=== PATIENT | male | born 1955 | race Caucasian/White ===

== ENCOUNTER → 2016-12-28 | Outpatient (CLI) | payer BC ==
[~2016-12-28] MED LIST: ACET50TAOT PO; ADVI200T PO; CAL-TAB2 PO; ESOM1CAP5 PO; LOSA50TA20 PO; MULTCAP PO; OMEP20CA3 PO; TEST1INJ3 IM; TEST200I14 IM; TRAM50TA2 PO; VITA-122 PO; XANA0.5T PO
[2016-12-28 11:44] LABS: MEAN CORPUSCULAR HEMOGLOBIN 29.1 pg (27.0-33.0); MEAN CORPUSCULAR HGB CONC 32.5 g/dl (32.0-36.5); MEAN CORPUSCULAR VOLUME 89.6 fl (80.0-96.0); RED CELL DISTRIBUTION WIDTH 14.3 % (11.5-14.5); WHITE BLOOD COUNT 6.8 10^3/uL (4.0-10.0)
[2016-12-28 13:43] LABS: ALBUMIN 3.7 GM/DL (3.2-5.2); ALBUMIN/GLOBULIN RATIO 1.09 (1.00-1.93); ALKALINE PHOSPHATASE 78 U/L (45-117); ALT/SGPT 44 U/L (12-78); ANION GAP 7 MEQ/L (8-16); AST/SGOT 24 U/L (15-37); BILIRUBIN,TOTAL 0.5 MG/DL (0.2-1.0); BLOOD UREA NITROGEN 26 MG/DL (7-18); CALCIUM LEVEL 8.7 MG/DL (8.8-10.2); CARBON DIOXIDE LEVEL 27 MEQ/L (21-32); CHLORIDE LEVEL 106 MEQ/L (98-107); CHOLESTEROL LEVEL 288 MG/DL (<200); CREATININE FOR GFR 1.03 MG/DL (0.70-1.30); GLOMERULAR FILTRATION RATE > 60.0 (>49); GLUCOSE, FASTING 93 MG/DL (80-110); POTASSIUM SERUM 4.3 MEQ/L (3.5-5.1); SODIUM LEVEL 140 MEQ/L (136-145); TOTAL PROTEIN 7.1 GM/DL (6.4-8.2); TRIGLYCERIDES LEVEL 154 MG/DL (<150)
== END ==
LOC: M LAB 10:58
PROVIDERS: ATTEND Family Medicine
DX: I10 Essential (primary) hypertension (principal)

== ENCOUNTER → 2018-01-31 | Outpatient (REF) | payer BC | LOC: M LAB REF 15:41 | DX: N39.0 Urinary tract infection, site not specified (principal) | CPT/HCPCS: 87186 ==

== ENCOUNTER → 2018-03-21 | Outpatient (CLI) | payer MEDICARE ==
[~2018-03-21] MED LIST changes: +ACET500T15 PO; -ACET50TAOT PO; -LOSA50TA20 PO; +LOSA50TA88 PO
[2018-03-21 13:04] LABS: HEMOGLOBIN 14.3 g/dl (13.5-17.5); MEAN CORPUSCULAR HEMOGLOBIN 29.9 pg (27.0-33.0); MEAN CORPUSCULAR HGB CONC 32.5 g/dl (32.0-36.5); MEAN CORPUSCULAR VOLUME 92.1 fl (80.0-96.0); PLATELET COUNT, AUTOMATED 249 10^3/uL (150-450); RED BLOOD COUNT 4.78 10^6/uL (4.30-6.10); WHITE BLOOD COUNT 8.4 10^3/uL (4.0-10.0)
[2018-03-21 13:13] LABS: ALBUMIN 3.3 GM/DL (3.2-5.2); ALT/SGPT 48 U/L (12-78); BILIRUBIN,TOTAL 0.4 MG/DL (0.2-1.0); BLOOD UREA NITROGEN 13 MG/DL (7-18); CALCIUM LEVEL 8.7 MG/DL (8.8-10.2); CARBON DIOXIDE LEVEL 25 MEQ/L (21-32); CHLORIDE LEVEL 106 MEQ/L (98-107); CHOLESTEROL LEVEL 270 MG/DL (<200); CHOLESTEROL RISK RATIO 4.426 (<5); CREATININE FOR GFR 1.01 MG/DL (0.70-1.30); GLOMERULAR FILTRATION RATE > 60.0 (>49); GLUCOSE, FASTING 90 MG/DL (70-100); HDL CHOLESTEROL 61 MG/DL (>40); LDL CHOLESTEROL 187 MG/DL (<100); NON-HDL-C 209 MG/DL; POTASSIUM SERUM 4.4 MEQ/L (3.5-5.1); PROSTATIC SPECIFIC AG MONITOR 0.29 NG/ML (< 4.00); SODIUM LEVEL 141 MEQ/L (136-145); TESTOSTERONE 82 NG/DL (241-827); TOTAL 25(OH) VITAMIN D 31.8 NG/ML (30.0-100.0); TOTAL PROTEIN 6.6 GM/DL (6.4-8.2); TRIGLYCERIDES LEVEL 110 MG/DL (<150)
[2018-03-21 13:54] LABS: HEMOGLOBIN A1c 5.2 %
[2018-03-22 10:35] LABS: HEPATITIS B SURFACE ANTIGEN NEGATIVE (NEGATIVE)
[2018-03-22 11:02] LABS: HEPATITIS C VIRUS ABY INDEX 0.1 INDEX (<0.8)
[2018-03-22 11:03] LABS: HEPATITIS B CORE ANTIBODY IGM NEGATIVE (NEGATIVE)
[2018-03-22 11:05] LABS: HEPATITIS A ANTIBODY IGM NEGATIVE (NEGATIVE)
== END ==
LOC: M ADAMS 08:14
PROVIDERS: ATTEND Surgery Vascular Surgery
DX: I10 Essential (primary) hypertension (principal); R53.83 Other fatigue; E03.9 Hypothyroidism, unspecified; Z79.899 Other long term (current) drug therapy; F43.23 Adjustment disorder with mixed anxiety and depressed mood

== ENCOUNTER → 2018-04-17 | Outpatient (CLI) | payer MEDICARE ==
--- NOTE | 2018-04-17 13:32 | REP ---
Chest two views HISTORY: Cough Comparison: 06/03/2015 The lungs are clear. The heart is normal in size. The pulmonary vasculature is normal in appearance. Degenerative change is present in the thoracic spine. IMPRESSION: No acute disease. Electronically Signed by Sudhir Chavarria MD 04/17/2018 01:23 P
--- NOTE | 2018-04-17 13:49 | REP ---
LUMBAR SPINE, FIVE VIEWS: HISTORY: Back pain. There is no acute fracture or subluxation. The intervertebral discs are decreased in height consistent with disc degeneration. Osteophytes are present throughout the lumbar spine. There is narrowing of the L4-5 and L5-S1 facet joints. IMPRESSION: Degenerative change as described above. Electronically Signed by Sudhir Chavarria MD 04/17/2018 01:57 P
== END ==
LOC: M ADAMS 12:53
PROVIDERS: ATTEND Family Medicine
DX: M51.36 Other intervertebral disc degeneration, lumbar region (principal); M51.37 Other intervertebral disc degeneration, lumbosacral region; M25.78 Osteophyte, vertebrae; R05 Cough; M54.5 Low back pain

== ENCOUNTER 2018-04-23 14:36 | Emergency (ER) | payer MEDICARE ==
[~2018-04-23] VITALS: Ht 175.3 cm; Wt 79.5 kg
[2018-04-23] MEDS ORDERED: NS 1,000 ML IV SCH (14:58)
[2018-04-23] MEDS ORDERED: ONDANSETRON 4MG/2ML VIAL (J2405) IV ONE (15:00)
[2018-04-23] MEDS ORDERED: ASPIRIN 81 MG CHEW TABLET PO ONE (15:00)
[2018-04-23] MEDS ORDERED: NITROGLYCERIN 0.4 MG SUBL TABLET SL PRN (15:00)
[2018-04-23 15:08] VITALS: BP 178/97
[2018-04-23 15:23] LABS: BASO # 0.1 10^3/uL (0.0-0.2); BASO % 0.6 % (0.0-1.0); EOS # 0.2 10^3/uL (0.0-0.50); HEMATOCRIT 51.6 % (42.0-52.0); HEMOGLOBIN 16.8 g/dl (13.5-17.5); LYMPH # 1.6 10^3/uL (1.5-4.5); LYMPH % 18.9 % (24.0-44.0); MEAN CORPUSCULAR HEMOGLOBIN 30.9 pg (27.0-33.0); MEAN CORPUSCULAR HGB CONC 32.6 g/dl (32.0-36.5); MEAN CORPUSCULAR VOLUME 94.9 fl (80.0-96.0); MONO # 0.7 10^3/uL (0.0-0.8); MONO % 8.4 % (0.0-5.0); NEUTROPHILS # 5.9 10^3/uL (1.8-7.7); NEUTROPHILS % 69.6 % (36.0-66.0); PLATELET COUNT, AUTOMATED 257 10^3/uL (150-450); RED BLOOD COUNT 5.44 10^6/uL (4.30-6.10); WHITE BLOOD COUNT 8.4 10^3/uL (4.0-10.0)
[2018-04-23 15:44] LABS: INR 0.95; PROTHROMBIN TIME 12.8 SECONDS (12.1-14.4)
[2018-04-23 15:45] LABS: PARTIAL THROMBOPLASTIN TIME 28.3 SECONDS (25.4-37.6)
[2018-04-23 15:58] LABS: ALBUMIN 3.5 GM/DL (3.2-5.2); ALT/SGPT 27 U/L (12-78); BILIRUBIN,DIRECT 0.1 MG/DL (0.0-0.2); BILIRUBIN,TOTAL 0.3 MG/DL (0.2-1.0); BLOOD UREA NITROGEN 11 MG/DL (7-18); CALCIUM LEVEL 8.1 MG/DL (8.8-10.2); CARBON DIOXIDE LEVEL 26 MEQ/L (21-32); CHLORIDE LEVEL 109 MEQ/L (98-107); CPK CREATINE PHOSPHOKINASE 137 U/L (39-308); CREATININE FOR GFR 0.91 MG/DL (0.70-1.30); FREE T4 0.88 NG/DL (0.76-1.46); GLOMERULAR FILTRATION RATE > 60.0 (>49); GLUCOSE, FASTING 115 MG/DL (70-100); LIPASE 164 U/L (73-393); MB/CK RELATIVE INDEX 1.39 (< OR =4); NT-PRO BNP 102 PG/ML (<125); SODIUM LEVEL 141 MEQ/L (136-145); THYROID STIMULATING HORMONE 0.827 uIU/ML (0.358-3.740); TOTAL PROTEIN 6.5 GM/DL (6.4-8.2); TROPONIN I < 0.02 NG/ML (< 0.10)
[2018-04-23] MEDS ORDERED: ISOVUE-370 76% 100ML VIAL (Q9967) As Ordered ONE (16:24)
--- NOTE | 2018-04-23 19:54 | ECGEPIP ---
Stationary ECG Study [facility] - ED Test Date: 2018-04-23 Pat Name: HEIKE REGAN Department: Room: - Gender: M Chief Technologist: RIVKA : 1955 Requested By: Erika Santoyo Order Number: [id number] Reading MD: Erika Santoyo Measurements Intervals [place] Rate: 94 P: 65 TX: 163 QRS: -42 QRSD: 92 T: 39 QT: 324 QTc: 406 Interpretive Statements SINUS RHYTHM MARKED LEFT AXIS DEVIATION SUBTLE ST T WAVE DEPRESSION INFEROLATERAL LEADS - NONSPECIFIC VS ISCHEMIA CLINICAL CORRELATION ADVISED CW 06/03/15 RATE INCREASED INFEROLATERAL CHANGES NEW - NONSPECIFIC VS ISCHEMIA Electronically Signed On 04-23-2018 19:53:57 EST by Erika Santoyo
[2018-04-23 20:00] LABS: CPK CREATINE PHOSPHOKINASE 120 U/L (39-308); MB/CK RELATIVE INDEX 1.33 (< OR =4); TROPONIN I < 0.02 NG/ML (< 0.10)
[2018-04-23] MEDS ORDERED: ASPI81TA85 PO (20:10)
[2018-04-23 20:13] VITALS: BP 176/98
--- NOTE | 2018-04-24 09:02 | REP ---
CHEST: Single view. There is no evidence of acute infiltrate. No pleural effusion is seen. The heart is normal in size. The mediastinal silhouette is unremarkable. The visualized osseous structures are intact. IMPRESSION: No acute pulmonary disease. Electronically Signed by Lucio Fletcher MD 04/24/2018 10:36 P
--- NOTE | 2018-04-24 10:36 | REP ---
CT ANGIOGRAM OF THE CHEST: TECHNIQUE: Axial contrast enhanced images from the thoracic inlet to the upper abdomen using 100 mL Isovue 370 intravenous contrast material with multiplanar reformations. There is no CT evidence of pulmonary embolism or aortic dissection. Heart is not enlarged. There is no adenopathy. There is no pleural or pericardial effusion. There is a tiny calcified granuloma in the left upper lobe. No definite infiltrate is seen bilaterally. Visualized upper abdominal structures appear unremarkable. IMPRESSION: No CT evidence of pulmonary embolism or aortic dissection. Electronically Signed by Lucio Fletcher MD 04/24/2018 10:49 P
--- NOTE | 2018-04-25 18:36 | ECGEPIP ---
Stationary ECG Study [facility] - ED Test Date: 2018-04-23 Pat Name: HEIKE REGAN Department: Room: - Gender: M Cabinet Builder: OR : 1955 Requested By: Erika Santoyo Order Number: [id number] Reading MD: Cora Campbell Measurements Intervals [place] Rate: 83 P: 46 AR: 180 QRS: -31 QRSD: 92 T: -13 QT: 347 QTc: 408 Interpretive Statements SINUS RHYTHM WITH SINUS ARRHYTHMIA MARKED LEFT AXIS DEVIATION NSTTW ABNORMALITY DECREASED RATE 04/23/18 14:46 Electronically Signed On 04-25-2018 18:36:08 EST by Cora Campbell
== END 2018-04-23 20:26 | disposition home or self-care (01) ==
LOC: M ED 14:36
DX: R07.9 Chest pain, unspecified (principal); R94.31 Abnormal electrocardiogram [ECG] [EKG]; I10 Essential (primary) hypertension; E78.5 Hyperlipidemia, unspecified; F17.200 Nicotine dependence, unspecified, uncomplicated
CPT/HCPCS: 71045; 71275; 80048; 80076; 82550; 82553; 83690; 83880; 84439; 84443; 84484; 85025; 85610; 85730; 93005; 93041; 94760; 96374; 99285; J2405; Q9967

== ENCOUNTER → 2018-08-14 | Outpatient (REF) | payer MEDICARE ==
[~2018-08-14] MED LIST changes: +ASPI81TA85 PO
[2018-08-14 20:05] LABS: BASO % 0.5 % (0.0-1.0); EOS # 0.2 10^3/uL (0.0-0.50); EOS % 2.7 % (0.0-3.0); HEMATOCRIT 51.8 % (42.0-52.0); HEMOGLOBIN 16.9 g/dl (13.5-17.5); LYMPH # 0.9 10^3/uL (1.5-4.5); LYMPH % 10.8 % (24.0-44.0); MEAN CORPUSCULAR HGB CONC 32.6 g/dl (32.0-36.5); MONO # 0.9 10^3/uL (0.0-0.8); MONO % 10.7 % (0.0-5.0); NEUTROPHILS # 6.3 10^3/uL (1.8-7.7); NEUTROPHILS % 75.1 % (36.0-66.0); PLATELET COUNT, AUTOMATED 236 10^3/uL (150-450); RED BLOOD COUNT 5.45 10^6/uL (4.30-6.10); WHITE BLOOD COUNT 8.4 10^3/uL (4.0-10.0)
[2018-08-14 20:36] LABS: ALBUMIN 3.3 GM/DL (3.2-5.2); ALT/SGPT 380 U/L (12-78); BLOOD UREA NITROGEN 10 MG/DL (7-18); CALCIUM LEVEL 8.7 MG/DL (8.8-10.2); CARBON DIOXIDE LEVEL 29 MEQ/L (21-32); CHLORIDE LEVEL 104 MEQ/L (98-107); CREATININE FOR GFR 1.02 MG/DL (0.70-1.30); GLOMERULAR FILTRATION RATE > 60.0 (>49); GLUCOSE, FASTING 102 MG/DL (70-100); LIPASE 2585 U/L (73-393); POTASSIUM SERUM 4.1 MEQ/L (3.5-5.1); SODIUM LEVEL 141 MEQ/L (136-145); TOTAL PROTEIN 6.9 GM/DL (6.4-8.2)
== END ==
LOC: M LABDRWAD 19:29
PROVIDERS: ATTEND Physician Assistant
DX: R10.11 Right upper quadrant pain (principal)

== ENCOUNTER → 2018-08-17 | Outpatient (CLI) | payer MEDICARE ==
--- NOTE | 2018-08-17 08:53 | REP ---
RIGHT UPPER QUADRANT ULTRASOUND: Real-time sonographic evaluation of the right upper quadrant performed. Gallbladder is contracted and contains multiple stones as well as sludge. There is no significant gallbladder wall thickening. There is no intrahepatic or extrahepatic biliary dilatation, common bile duct measuring 5 mm. No free fluid is seen. There is diffuse increased echotexture of the liver suggesting diffuse fibrofatty infiltration. No gross liver or pancreas mass is seen, pancreatic tail is not well seen due to overlying bowel gas. Right kidney demonstrates no hydronephrosis with normal size 11.9 cm in length. IMPRESSION: Somewhat contracted gallbladder containing sludge and stones. No significant gallbladder wall thickening. No free fluid or biliary dilatation. Diffuse fibrofatty infiltration of the liver. Electronically Signed by Lucio Fletcher MD 08/21/2018 01:40 P
== END ==
LOC: M RAD 07:18
PROVIDERS: ATTEND Physician Assistant
DX: K80.20 Calculus of gallbladder without cholecystitis without obstruction (principal); K76.0 Fatty (change of) liver, not elsewhere classified

== ENCOUNTER 2018-10-15 12:28 | Emergency (ER) | payer MEDICARE ==
[~2018-10-15] VITALS: Ht 175.3 cm; Wt 75.0 kg
[~2018-10-15 12:28] MED LIST changes: -OMEP20CA3 PO; +OMEP20CA4 PO
[2018-10-15] MEDS ORDERED: ADVI100T PO ×2 (12:36)
[2018-10-15] MEDS ORDERED: ACET1TAB16 (12:36)
[2018-10-15] MEDS ORDERED: MELO7.5T35 (12:36)
[2018-10-15] MEDS ORDERED: KETOROLAC 60 MG/2 ML VIAL (J1885) IM ONE (13:15)
[2018-10-15] MEDS ORDERED: CYCLOBENZAPRINE 10 MG TAB PO ONE (13:15)
--- NOTE | 2018-10-15 13:59 | REP ---
Clinical: Left hip pain. Technique: AP, lateral, bilateral oblique and coned-down views of the lumbosacral spine. Findings: Moderate/early advanced multilevel degenerative changes are appreciated. Alignment is maintained and without spondylolisthesis. No obvious acute fracture / compression injury or subluxation. Impression: Moderate/early advanced multilevel degenerative spondylosis. Electronically Signed by Misbah Moffett MD 10/15/2018 01:50 P
--- NOTE | 2018-10-15 14:00 | REP ---
Clinical: Left hip pain. Technique: AP view of the pelvis with neutral and frog lateral views of the left hip. Findings: Age-related arthritic degenerative changes to the pelvis and hips noted. No acute fracture or dislocation. Impression: Age-related arthritic degenerative changes. Electronically Signed by Misbah Moffett MD 10/15/2018 01:51 P
[2018-10-15] MEDS ORDERED: KETO10TAB PO (14:27)
[2018-10-15] MEDS ORDERED: CYCL10TA PO (14:27)
[2018-10-15] MEDS ORDERED: METH4PACK PO (14:35)
[2018-10-15 14:45] VITALS: BP 160/81
== END 2018-10-15 14:47 | disposition home or self-care (01) ==
LOC: M ED 12:28
DX: M51.37 Other intervertebral disc degeneration, lumbosacral region (principal); M16.12 Unilateral primary osteoarthritis, left hip; M54.32 Sciatica, left side; I10 Essential (primary) hypertension; E78.5 Hyperlipidemia, unspecified; Z79.899 Other long term (current) drug therapy; Z79.82 Long term (current) use of aspirin
CPT/HCPCS: 72110; 73502; 96372; 99283; J1885

== ENCOUNTER → 2018-12-25 | Outpatient (CLI) | payer MEDICARE ==
[~2018-12-25] MED LIST changes: +ACET1TAB16; +ADVI100T PO; +CYCL10TA PO; +E-Z-GAS II EFFERVESCENT PACKET (SODIUM BICARB./CITRIC ACID/SIMETHICONE) As Ordered ONE; +E-Z-HD 98% w/w 340GM SUSP BTL As Ordered ONE; +E-Z-PAQUE 96% w/w SUSP 176GM BTL As Ordered ONE; +KETO10TAB PO; +MELO7.5T35; +METH4PACK PO
--- NOTE | 2018-12-25 18:51 | REP ---
Examination Requested: Upper G.I. Series With KUB Reason For Exam: Epigastric pain Upper GI Air Contrast The procedure was performed by MARY ELLEN Morris, under the direct supervision of Dr. Tamez. The images were reviewed with Dr. Tamez. The solaris administrator film shows no organomegaly or pathological masses. The intestinal gas pattern appears normal. There is degenerative disc disease of the cervical spine with spurs most notably at the C4/5, C5/6 and C6/7 disc spaces. Liquid barium and gas producing crystals were given in the erect position as well as liquid barium in the prone oblique position in order to perform a double contrast upper GI examination. The oral and pharyngeal stages of deglutition were unremarkable. However penetration without aspiration was visualized. Esophageal transport is efficient and there is no esophagitis, stricture, or mucosal ring noted. There is no hiatal hernia. Gastroesophageal reflux was not demonstrated throughout the course of the exam. The stomach alejandre are normally outlined. The rugal folds are smooth and regular. There is no gastritis, neoplasm, ulcer disease noted. The duodenal alejandre are normally outlined. The mucosal folds are smooth and regular. There is no duodenitis, peptic ulcer disease, or neoplasm noted. The visualized portion of the proximal small bowel appears normal in course and caliber. Impression: 1. Penetration without aspiration, otherwise unremarkable upper GI. 2. Degenerative disc disease of the cervical spine as described above. 0.9 minutes of fluoroscopy time was utilized for this procedure. Some fluoroscopic images are performed with last image hold technology. These images require no additional radiation. Reviewed by MARY ELLEN Herrera 12/25/2018 02:54 P Electronically Signed by Monroe Tamez MD 12/25/2018 06:41 P
== END ==
LOC: M RAD 09:06
PROVIDERS: ATTEND Family Medicine
DX: M50.321 Other cervical disc degeneration at C4-C5 level (principal); M50.322 Other cervical disc degeneration at C5-C6 level

== ENCOUNTER 2019-05-04 12:55 | Day surgery (SDC) | payer MEDICARE ==
[~2019-05-04] VITALS: Ht 175.3 cm; Wt 72.6 kg
[~2019-05-04 12:55] MED LIST changes: +ALPR0.5T3 PO; -E-Z-GAS II EFFERVESCENT PACKET (SODIUM BICARB./CITRIC ACID/SIMETHICONE) As Ordered ONE; -E-Z-HD 98% w/w 340GM SUSP BTL As Ordered ONE; -E-Z-PAQUE 96% w/w SUSP 176GM BTL As Ordered ONE; +NS 1,000 ML IV ONE; +OMEP-218 PO; +OMEP1CAP73 PO; -OMEP20CA4 PO; +SUCR1TA PO
[2019-05-04] MEDS ORDERED: LIDOCAINE 2% INJ 100 MG/5 ML SDV (FOR ANES.) As Ordered ONE (14:49)
[2019-05-04] MEDS ORDERED: propofoL 200 MG/20 ML VIAL As Ordered ONE (14:49)
--- NOTE | 2019-05-04 14:51 | ROOR ---
Patient Name: Rafi Wills Procedure Date: 05/04/2019 2:19 PM Date of : 1955 Age: 63 Room: [facility] Gender: Male Note Status: Finalized Procedure: Colonoscopy Indications: High risk colon cancer surveillance: Personal history of colonic polyps, Last colonoscopy: March 2015 Providers: Natan TOVAR MD Referring MD: RADHA BARRAZA MD Requesting Provider: Medicines: Monitored Anesthesia Care Complications: No immediate complications. Procedure: Pre-Anesthesia Assessment: - The heart rate, respiratory rate, oxygen saturations, blood pressure, adequacy of pulmonary ventilation, and response to care were monitored throughout the procedure. The Colonoscope was introduced through the anus and advanced to the terminal ileum, with identification of the appendiceal orifice and IC valve. The colonoscopy was performed without difficulty. The patient tolerated the procedure well. The quality of the bowel preparation was good. Findings: The perianal and digital rectal examinations were normal. Five sessile polyps were found in the hepatic flexure, ascending colon and cecum. The polyps were 5 to 10 mm in size. These polyps were removed with a cold snare. Resection and retrieval were complete. A 4 mm polyp was found in the sigmoid colon. The polyp was sessile. The polyp was removed with a cold snare. Resection and retrieval were complete. A 4 mm polyp was found in the rectum. The polyp was sessile. The polyp was removed with a cold snare. Resection and retrieval were complete. A 10 mm post polypectomy scar was found in the mid rectum. There was no evidence of the previous polyp. Multiple medium-mouthed diverticula were found in the sigmoid colon. Internal hemorrhoids were found during retroflexion. The hemorrhoids were moderate. Impression: - Five 5 to 10 mm polyps at the hepatic flexure, in the ascending colon and in the cecum, removed with a cold snare. Resected and retrieved. - One 4 mm polyp in the sigmoid colon, removed with a cold snare. Resected and retrieved. - One 4 mm polyp in the rectum, removed with a cold snare. Resected and retrieved. - Post-polypectomy (2015) scar in the mid rectum, free of any residual polyp tissue. - Diverticulosis in the sigmoid colon. - Internal hemorrhoids. Recommendation: - Use fiber, for example Citrucel, Fibercon, Konsyl or Metamucil. - Repeat colonoscopy in 3 years for surveillance. Natan Tovar MD Natan TOVAR MD 05/04/2019 2:51:30 PM Electronically signed by Natan TOVAR MD Number of Addenda: 0 Note Initiated On: 05/04/2019 2:19 PM Estimated Blood Loss: Estimated blood loss: none.
[2019-05-04 15:15] VITALS: BP 141/79
== END 2019-05-04 15:21 | disposition home or self-care (01) ==
LOC: M OPP 12:55
PROVIDERS: ATTEND Internal Medicine Gastroenterology
DX: Z12.11 Encounter for screening for malignant neoplasm of colon (principal); Z86.010 Personal history of colon polyps; K63.5 Polyp of colon; K62.1 Rectal polyp; K64.8 Other hemorrhoids; K57.30 Diverticulosis of large intestine without perforation or abscess without bleeding; F17.210 Nicotine dependence, cigarettes, uncomplicated

== ENCOUNTER → 2020-01-31 | Outpatient (REF) | payer MEDICARE ==
[~2020-01-31] MED LIST changes: -ASPI81TA85 PO; +ASPI81TA86 PO; +CYCL-707 PO; -CYCL10TA PO; -NS 1,000 ML IV ONE
== END ==
LOC: M LAB REF 11:28
PROVIDERS: ATTEND Specialist
DX: D10.1 Benign neoplasm of tongue (principal)

== ENCOUNTER → 2020-03-25 | Outpatient (CLI) | payer MEDICARE ==
--- NOTE | 2020-03-25 17:23 | REP ---
INDICATION: Assess stenosis COMPARISON: None TECHNIQUE: Carotid ultrasonography was performed bilaterally FINDINGS: Right: CCA systolic: 84.9 centimeters/second CCA diastolic: 16.7 centimeters/seconds ICA systolic: 73.9 centimeters/seconds diastolic: 26.0 centimeters/seconds ICA CCA ratio: 0.9 Left: CCA systolic: 75.1 centimeters/seconds CCA diastolic: 16.7 centimeters/second ICA systolic: 60.6 centimeters/second ICA diastolic: 22.5 centimeters/second ICA CCA ratio: 0.8 Vertebral artery: Right: Antegrade left: Antegrade IMPRESSION: According to the SRU criteria there is less than 50% stenosis in the internal carotid artery bilaterally. This is secondary to both calcified and noncalcified plaque formation. <Electronically signed by Mark Porter > 03/25/20 [id number]
== END ==
LOC: M RAD 16:08
PROVIDERS: ATTEND Family Medicine
DX: R09.89 Other specified symptoms and signs involving the circulatory and respiratory systems (principal)

== ENCOUNTER → 2020-07-14 | Outpatient (CLI) | payer MEDICARE ==
--- NOTE | 2020-07-14 07:31 | REPVR ---
PROCEDURE INFORMATION: Exam: CT Head Without Contrast Exam date and time: 07/14/2020 7:14 AM Age: 64 years old Clinical indication: Pain; Headache; Additional info: JASON, dizziness TECHNIQUE: Imaging protocol: Computed tomography of the head without contrast. Radiation optimization: All CT scans at this facility use at least one of these dose optimization techniques: automated exposure control; mA and/or kV adjustment per patient size (includes targeted exams where dose is matched to clinical indication); or iterative reconstruction. COMPARISON: No relevant prior studies available. FINDINGS: Brain: Normal. No hemorrhage. Unremarkable white matter. No mass effect. Cerebral ventricles: No ventriculomegaly. Bones/joints: Unremarkable. No acute fracture. Paranasal sinuses: Chronic mucosal disease involves some ethmoid air cells. The visualized paranasal sinuses and air cells are otherwise clear. Mastoid air cells: Visualized mastoid air cells are well aerated. Soft tissues: Unremarkable. IMPRESSION: 1. No CT evidence for acute intracranial abnormality. 2. Chronic ethmoid air cell disease. Electronically signed by: Rafi Zavaleta On 07/14/2020 07:31:17 AM
== END ==
LOC: M RAD 06:59
PROVIDERS: ATTEND Family Medicine
DX: R51.9 Headache, unspecified (principal); R42 Dizziness and giddiness; J32.2 Chronic ethmoidal sinusitis

== ENCOUNTER 2020-10-06 14:41 | Outpatient (RCR) | payer MEDICARE | END 2020-10-11 | LOC: M OUTALCOH 14:41 | PROVIDERS: ATTEND Psychiatry & Neurology Psychiatry | DX: F10.20 Alcohol dependence, uncomplicated (principal) | CPT/HCPCS: H0001; H0050 ==

== ENCOUNTER → 2020-12-05 | Outpatient (CLI) | payer MEDICARE ==
--- NOTE | 2020-12-05 14:28 | REP ---
INDICATION: HEAD INJURY. COMPARISON: July 14, 2020. TECHNIQUE: Helical scanning is acquired. 5 mm axial images were reformatted. Coronal MPR images were generated. FINDINGS: Bone window settings demonstrate an intact bony calvarium. There is no evidence of skull fracture or incidental bony calvarial lesion. There is mild mucosal thickening again seen in the ethmoid air cells unchanged. The visualized paranasal sinuses appear otherwise clear. No intraorbital abnormality is seen. On soft tissue window setting images; the lateral, third, and fourth ventricles are normal in size and position. Fletcher-white differentiation pattern is normal above and below the tentorium. There are is no evidence of intracranial hemorrhage. No mass, edema, infarction, or midline shift is seen. No extra-axial fluid collection is appreciated. IMPRESSION: Ethmoid sinus mucosal thickening is again noted. Otherwise negative head CT. No skull fracture or intracranial injury seen. <Electronically signed by [place] Tamez > 12/05/20 [id number]
== END ==
LOC: M RAD 13:28
PROVIDERS: ATTEND Family Medicine
DX: S09.90XA Unspecified injury of head, initial encounter (principal); X58.XXXA Exposure to other specified factors, initial encounter; Y92.9 Unspecified place or not applicable; Y99.9 Unspecified external cause status; Y93.9 Activity, unspecified; J32.2 Chronic ethmoidal sinusitis

== ENCOUNTER → 2021-02-17 | Outpatient (CLI) | payer MEDICARE ==
--- NOTE | 2021-02-17 11:15 | REP ---
INDICATION: FALL, R/O FX COMPARISON: 05/28/2014. TECHNIQUE: Five views right knee. FINDINGS: There is no evidence of acute fracture, dislocation, or intrinsic bone disease.There is a stable moderate spur at the superior pole of the patella. There is no radiographic evidence of a significant joint effusion. There are mild vascular calcifications posteriorly. IMPRESSION: No fracture or dislocation. Stable moderate spur superior pole patella. <Electronically signed by Lucio Fletcher > 02/17/21 [id number]
--- NOTE | 2021-02-17 11:16 | REP ---
INDICATION: FALL, R/O FX COMPARISON: Pelvis 10/15/2018, right knee 05/28/2014. TECHNIQUE: AP and lateral right femur. FINDINGS: There is no evidence of acute fracture, dislocation, or intrinsic bone disease.There are moderate degenerative changes at the hip joint, with moderate joint space narrowing, subchondral sclerosis and spurring. There is moderate spurring of the superior pole of the patella. IMPRESSION: Moderate degenerative changes right hip joint. Moderate spurring superior pole of patella. <Electronically signed by Lucio Fletcher > 02/17/21 [id number]
== END ==
LOC: M ADAMS 09:52
PROVIDERS: ATTEND Family Medicine
DX: M16.11 Unilateral primary osteoarthritis, right hip (principal); M76.891 Other specified enthesopathies of right lower limb, excluding foot; Z91.81 History of falling

== ENCOUNTER 2021-04-22 19:05 | Emergency (ER) | payer MEDICARE ==
[~2021-04-22] VITALS: Ht 172.7 cm; Wt 83.3 kg
[~2021-04-22 19:05] MED LIST changes: +LOSA50TA28 PO; -LOSA50TA88 PO; +OMEP-173 PO; -OMEP-218 PO
[2021-04-22] MEDS ORDERED: HYDR-3363 (19:17)
[2021-04-22 22:16] VITALS: BP 150/100
== END 2021-04-22 23:28 | disposition left against medical advice (07) ==
LOC: M ED 19:05
DX: Z53.21 Procedure and treatment not carried out due to patient leaving prior to being seen by health care provider (principal)

== ENCOUNTER → 2021-06-29 | Outpatient (CLI) | payer MEDICARE ==
[~2021-06-29] MED LIST changes: -ACET1TAB16; +ACET300T48; +HYDR-3363
== END ==
LOC: M RAD 08:58
PROVIDERS: ATTEND Family Medicine
DX: R10.11 Right upper quadrant pain (principal)

== ENCOUNTER → 2022-03-02 | Outpatient (CLI) | payer MEDICARE ==
[2022-03-02 11:09] LABS: HEMATOCRIT 48.7 % (42.0-52.0); HEMOGLOBIN 15.5 g/dl (13.5-17.5); MEAN CORPUSCULAR HEMOGLOBIN 30.1 pg (27.0-33.0); MEAN CORPUSCULAR HGB CONC 31.8 g/dl (32.0-36.5); MEAN CORPUSCULAR VOLUME 94.6 fl (80.0-96.0); PLATELET COUNT, AUTOMATED 224 10^3/uL (150-450); RED BLOOD COUNT 5.15 10^6/uL (4.30-6.10)
[2022-03-02 11:21] LABS: INR 0.91; PROTHROMBIN TIME 12.5 SECONDS (12.5-14.5)
[2022-03-02 11:34] LABS: ALBUMIN 3.4 G/DL (3.2-5.2); ALKALINE PHOSPHATASE 73 U/L (46-116); ALT/SGPT 29 U/L (7.0-40); AST/SGOT 32 U/L (<34); BILIRUBIN,TOTAL 0.6 MG/DL (0.3-1.2); BLOOD UREA NITROGEN 20 MG/DL (9-23); CARBON DIOXIDE LEVEL 26 MMOL/L (20-31); CHLORIDE LEVEL 106 MMOL/L (98-107); CHOLESTEROL LEVEL 288 MG/DL (<200); CHOLESTEROL RISK RATIO 6.22 (<5); CREATININE FOR GFR 0.92 MG/DL (0.70-1.30); GLOMERULAR FILTRATION RATE > 60.0 (>49); GLUCOSE, FASTING 88 MG/DL (74-106); HDL CHOLESTEROL 46.3 MG/DL (>40); LDL CHOLESTEROL 195.9 MG/DL (<100); NON-HDL-C 242 MG/DL; POTASSIUM SERUM 4.6 MMOL/L (3.5-5.1); SODIUM LEVEL 139 MMOL/L (136-145); TOTAL PROTEIN 6.6 G/DL (5.7-8.2); TRIGLYCERIDES LEVEL 229 MG/DL (<150)
[2022-03-02 11:36] LABS: THYROID STIMULATING HORMONE 2.548 uIU/ML (0.55-4.78)
== END ==
LOC: M RAD 10:06
PROVIDERS: ATTEND Family Medicine
DX: Z01.818 Encounter for other preprocedural examination (principal); I10 Essential (primary) hypertension; J44.9 Chronic obstructive pulmonary disease, unspecified
CPT/HCPCS: 36415; 71046; 80053; 80061; 84443; 85027; 85610; 93005; G0103

== ENCOUNTER → 2022-06-02 | Outpatient (CLI) | payer MEDICARE ==
[~2022-06-02] MED LIST changes: +E-Z-GAS II EFFERVESCENT PACKET (SODIUM BICARB./CITRIC ACID/SIMETHICONE) As Ordered ONE; +E-Z-HD 98% w/w 340GM SUSP BTL As Ordered ONE; +E-Z-PAQUE 96% w/w SUSP 176GM BTL As Ordered ONE
== END ==
LOC: M RAD 09:25
PROVIDERS: ATTEND Family Medicine
DX: K27.9 Peptic ulcer, site unspecified, unspecified as acute or chronic, without hemorrhage or perforation (principal); R10.13 Epigastric pain

== ENCOUNTER 2022-09-23 10:41 | Day surgery (SDC) | payer MEDICARE ==
[~2022-09-23] VITALS: Ht 172.7 cm; Wt 78.5 kg
[~2022-09-23 10:41] MED LIST changes: -E-Z-GAS II EFFERVESCENT PACKET (SODIUM BICARB./CITRIC ACID/SIMETHICONE) As Ordered ONE; -E-Z-HD 98% w/w 340GM SUSP BTL As Ordered ONE; -E-Z-PAQUE 96% w/w SUSP 176GM BTL As Ordered ONE; +LIDOCAINE 2% 100MG/5ML SDV (FOR ANES.) As Ordered ONE; +NAPR-885 PO; +NS 1,000 ML IV ONE; +propofoL 200 MG/20 ML VIAL As Ordered ONE
[2022-09-23] MEDS ORDERED: fentaNYL 100 MCG/2 ML INJECTION As Ordered ONE (12:59)
[2022-09-23] MEDS ORDERED: propofoL 200 MG/20 ML VIAL As Ordered ONE (13:29)
[2022-09-23 14:30] VITALS: BP 185/102; TEMP 98.2; O2SAT 99
== END 2022-09-23 15:15 | disposition home or self-care (01) ==
LOC: M OPP 10:41
PROVIDERS: ATTEND Internal Medicine Gastroenterology
DX: Z12.11 Encounter for screening for malignant neoplasm of colon (principal); Z86.010 Personal history of colon polyps; Z80.0 Family history of malignant neoplasm of digestive organs; D12.2 Benign neoplasm of ascending colon; D12.3 Benign neoplasm of transverse colon; K64.8 Other hemorrhoids; D49.0 Neoplasm of unspecified behavior of digestive system; K29.70 Gastritis, unspecified, without bleeding; K22.2 Esophageal obstruction; Z79.1 Long term (current) use of non-steroidal anti-inflammatories (NSAID); Z79.899 Other long term (current) drug therapy; F17.200 Nicotine dependence, unspecified, uncomplicated
CPT/HCPCS: 43239; 43249; 45380; 45381; 88305; J3010

== ENCOUNTER → 2022-11-16 | Outpatient (CLI) | payer MEDICARE ==
[~2022-11-16] MED LIST changes: -LIDOCAINE 2% 100MG/5ML SDV (FOR ANES.) As Ordered ONE; -NS 1,000 ML IV ONE; -propofoL 200 MG/20 ML VIAL As Ordered ONE
== END ==
LOC: M RAD 12:54
PROVIDERS: ATTEND Family Medicine
DX: J44.9 Chronic obstructive pulmonary disease, unspecified (principal)

== ENCOUNTER → 2022-11-24 | Outpatient (CLI) | payer MEDICARE | LOC: M RAD 07:56 | PROVIDERS: ATTEND Family Medicine | DX: R22.2 Localized swelling, mass and lump, trunk (principal) ==

== ENCOUNTER → 2023-01-25 | Day surgery (SDC) | payer MEDICARE ==
[~2023-01-25] VITALS: Ht 172.7 cm; Wt 77.6 kg
[~2023-01-25] MED LIST changes: +ELEVIEW SUBMUCOSAL INJ 10ML AMP As Ordered ONE; +GLYCOPYRROLATE INJ 0.2 MG/ML 2 ML VIAL As Ordered ONE; +LIDOCAINE 2% 100MG/5ML SDV (FOR ANES.) As Ordered ONE; +NS 1,000 ML IV ONE; +propofoL 500 MG/50 ML VIAL As Ordered ONE
[2023-01-25 08:48] VITALS: TEMP 98
[2023-01-25 09:03] VITALS: BP 112/63; O2SAT 98
== END | disposition home or self-care (01) ==
LOC: M OPP 07:09
PROVIDERS: ATTEND Internal Medicine Gastroenterology
DX: K57.30 Diverticulosis of large intestine without perforation or abscess without bleeding (principal); K63.5 Polyp of colon; D12.4 Benign neoplasm of descending colon; K64.8 Other hemorrhoids; F17.210 Nicotine dependence, cigarettes, uncomplicated; Z80.0 Family history of malignant neoplasm of digestive organs; Z80.1 Family history of malignant neoplasm of trachea, bronchus and lung; Z79.899 Other long term (current) drug therapy

== ENCOUNTER → 2023-08-17 | Outpatient (CLI) | payer MEDICARE ==
[~2023-08-17] MED LIST changes: -ELEVIEW SUBMUCOSAL INJ 10ML AMP As Ordered ONE; +ESOM1CAP20 PO; -ESOM1CAP5 PO; -GLYCOPYRROLATE INJ 0.2 MG/ML 2 ML VIAL As Ordered ONE; -LIDOCAINE 2% 100MG/5ML SDV (FOR ANES.) As Ordered ONE; -NS 1,000 ML IV ONE; -propofoL 500 MG/50 ML VIAL As Ordered ONE
== END ==
LOC: M PLAIMG 09:53
PROVIDERS: ATTEND Family Medicine
DX: R04.2 Hemoptysis (principal); I70.0 Atherosclerosis of aorta; I25.10 Atherosclerotic heart disease of native coronary artery without angina pectoris; K76.0 Fatty (change of) liver, not elsewhere classified

== ENCOUNTER → 2024-11-07 | Outpatient (REF) | payer MEDICARE | LOC: M SFHCLERA 13:35 | PROVIDERS: ATTEND Internal Medicine | DX: Z53.9 Procedure and treatment not carried out, unspecified reason (principal) ==

== ENCOUNTER → 2025-02-26 | Outpatient (REF) | payer MEDICARE ==
[~2025-02-26] MED LIST changes: -HYDR-3363; +HYDR-3363 PO
[2025-02-26 14:13] LABS: BASO # 0.1 10^3/uL (0.0-0.2); BASO % 0.6 % (0.0-1.0); EOS # 0.2 10^3/uL (0.0-0.5); EOS % 2.5 % (0.0-3.0); LYMPH # 2.8 10^3/uL (1.5-5.0); LYMPH % 29.6 % (24.0-44.0); MONO # 1.0 10^3/uL (0.0-0.8); MONO % 10.5 % (2.0-8.0); NEUTROPHILS # 5.4 10^3/uL (1.5-8.5); NEUTROPHILS % 56.5 % (36.0-66.0); PLATELET COUNT, AUTOMATED 246 10^3/uL (150-450)
[2025-02-26 14:18] LABS: APPEARANCE, URINE CLEAR (CLEAR); BACTERIA, URINE AUTO NEGATIVE (NEGATIVE); BILIRUBIN, URINE AUTO NEGATIVE (NEGATIVE); BLOOD, URINE BLOOD NEGATIVE (NEGATIVE); GLUCOSE, URINE (UA) AUTO NEGATIVE (NEGATIVE); KETONE, URINE AUTO NEGATIVE (NEGATIVE); LEUKOCYTE ESTERASE, URINE AUTO NEGATIVE (NEGATIVE); MUCUS, URINE SMALL (NEGATIVE); NITRITE, URINE AUTO NEGATIVE (NEGATIVE); PROTEIN, URINE AUTO NEGATIVE (NEGATIVE); RBC, URINE AUTO 1 /HPF (0-3); SPECIFIC GRAVITY URINE AUTO 1.019 (1.002-1.035); SQUAMOUS EPITHELIAL CELL UR AU 0 /HPF (0-6); UROBILINOGEN, URINE AUTO 0.2 mg/dL (0.0-2.0); WBC, URINE AUTO 1 /HPF (0-3)
[2025-02-26 14:19] LABS: PSA SCREENING 0.21 NG/ML (< 4.00)
[2025-02-26 14:20] LABS: ALT/SGPT 25 U/L (7.0-40); AST/SGOT 23 U/L (<34); CALCIUM LEVEL 8.9 MG/DL (8.3-10.6); CARBON DIOXIDE LEVEL 29 MMOL/L (20-31); CHLORIDE LEVEL 107 MMOL/L (98-107); CHOLESTEROL LEVEL 343 MG/DL (<200); CHOLESTEROL RISK RATIO 5.03 (<5); CREATININE FOR GFR 0.89 MG/DL (0.70-1.30); GLOMERULAR FILTRATION RATE > 90.0 (>42); LDL CHOLESTEROL 251.1 MG/DL (<100); NON-HDL-C 274.9 MG/DL; POTASSIUM SERUM 4.4 MMOL/L (3.5-5.1); SODIUM LEVEL 142 MMOL/L (136-145); TRIGLYCERIDES LEVEL 119 MG/DL (<150)
[2025-02-26 14:24] LABS: TESTOSTERONE 48 NG/DL (241-827)
[2025-02-26 15:28] LABS: ESTIMATED AVERAGE GLUCOSE 105.0 MG/DL (60-110)
== END ==
LOC: M LABDRWAD 13:02
PROVIDERS: ATTEND Internal Medicine
DX: Z00.00 Encounter for general adult medical examination without abnormal findings (principal); E29.1 Testicular hypofunction; Z12.5 Encounter for screening for malignant neoplasm of prostate; E78.2 Mixed hyperlipidemia; Z79.899 Other long term (current) drug therapy
CPT/HCPCS: 36415; 80053; 80061; 81001; 83036; 84403; 85025; G0103